=== PATIENT | male | born 1945 | race Asian ===

== ENCOUNTER 2017-11-30 10:51 | Day surgery (SDC) | payer MEDICARE ==
[~2017-11-30] VITALS: Ht 175.3 cm; Wt 70.0 kg
[2017-11-30] MEDS ORDERED: SODIUM CHLORIDE 0.9% 1,000 ML IV ONE (11:37)
[2017-11-30 12:21] VITALS: BP 147/77
[2017-11-30 12:29] LABS: BASOPHILS # (AUTO) 0.05 x10^3/uL (0-0.1); BASOPHILS % (AUTO) 1 % (0-1); EOSINOPHILS # (AUTO) 0.45 x10^3/uL (0-0.4); EOSINOPHILS % (AUTO) 6 % (1-7); LYMPHOCYTES # (AUTO) 2.31 x10^3/uL (1-3.4); LYMPHOCYTES % (AUTO) 31 % (22-44); MD NO; MEAN CORPUSCULAR HEMOGLOBIN 31.4 pg (27.5-34.5); MEAN CORPUSCULAR HGB CONC 33.7 g/dL (33.2-36.2); MEAN PLATELET VOLUME 9.3 fL (7.4-10.4); MONOCYTES # (AUTO) 0.64 x10^3/uL (0.2-0.8); MONOCYTES % (AUTO) 9 % (2-9); NEUTROPHILS # (AUTO) 3.92 x10^3/uL (1.8-6.8); NEUTROPHILS % (AUTO) 53 % (42-75); PLATELET COUNT 159 x10^3/uL (130-400); RED BLOOD COUNT 4.35 x10^6/uL (4.38-5.82); RED CELL DISTRIBUTION WIDTH 13.6 % (9.4-14.8)
[2017-11-30] MEDS ORDERED: METO25TA35 PO (12:31)
[2017-11-30] MEDS ORDERED: AMLO10TA2 PO (12:31)
[2017-11-30] MEDS ORDERED: CETI10CA PO (12:32)
[2017-11-30] MEDS ORDERED: ATOR-2 PO ×2 (12:33→12:34)
[2017-11-30] MEDS ORDERED: ASPI-621 PO (12:33)
[2017-11-30] MEDS ORDERED: MULT-718 PO (12:36)
[2017-11-30] MEDS ORDERED: ISOS30TA8 PO (12:37)
[2017-11-30] MEDS ORDERED: ATOR40TA78 PO (12:38)
[2017-11-30 12:41] LABS: ANION GAP 7 mmol/L (5-15); CALCIUM 8.8 mg/dL (8.5-10.1); CHLORIDE 108 mmol/L (98-107)
[2017-11-30 12:42] LABS: CREATININE 1.05 mg/dL (0.7-1.3)
[2017-11-30] MEDS ORDERED: FENTANYL PF 100 MCG/2ML ONE (12:52)
[2017-11-30] MEDS ORDERED: LIDOCAINE 2%, 2ML ONE (12:52)
[2017-11-30] MEDS ORDERED: TICAGRELOR 90 MG TABLET ONE (12:52)
[2017-11-30] MEDS ORDERED: MIDAZOLAM 1 MG/ML, 5ML ONE (12:52)
[2017-11-30] MEDS ORDERED: HEPARIN 1,000 UNITS/ML, 10ML ONE (12:53)
[2017-11-30] MEDS ORDERED: VERAPAMIL 2.5 MG/ML, 2ML ONE (12:53)
[2017-11-30] MEDS ORDERED: BIVALIRUDIN 250 MG ONE (12:53)
[2017-11-30] MEDS ORDERED: SODIUM CHLORIDE 0.9% 1,000 ML IV SCH (14:30)
[2017-11-30] MEDS ORDERED: NITR0.4T28 SL (17:06)
[2017-12-01] MEDS ORDERED: AMLODIPINE 5 MG TABLET PO SCH (09:00)
[2017-12-01] MEDS ORDERED: CETIRIZINE 10 MG TABLET PO SCH (09:00)
== END 2017-11-30 17:46 | disposition home or self-care (01) ==
LOC: CACL 10:51 → 5SO 14:37 → CACL 17:46
PROVIDERS: ATTEND Internal Medicine Cardiovascular Disease
DX: I25.82 Chronic total occlusion of coronary artery (principal); I25.119 Atherosclerotic heart disease of native coronary artery with unspecified angina pectoris; I10 Essential (primary) hypertension; E78.00 Pure hypercholesterolemia, unspecified; E78.2 Mixed hyperlipidemia; Z79.82 Long term (current) use of aspirin
CPT/HCPCS: 36415; 80048; 85025; 92920; 93306; 93458; 99156; 99157; C1725; C1769; C1887; C1894; J0583; J1644; J2250; J3010; J3490; J7030; Q9967; 92928